=== PATIENT | female | born 1995 | race American Indian/Alaskan Native ===

== ENCOUNTER 2018-03-12 06:49 | Inpatient (IN) | payer MEDICAID, OTHER ==
--- NOTE | 2018-03-12 07:10 | ED PDOC ---
Arrival/HPI - General Time Seen by Provider: 03/12/18 07:01 Historian: Patient - History of Present Illness Narrative History of Present Illness (Text): 03/12/18 07:07 Patient is a 22 yo female present to the Emergency Department complaining of 5 days of persistent bodyaches, nausea and diarrhea. States she was evaluated this past Sunday at [facility] but has had persistent symptoms despite being prescribed antinausea medication. She reports upper abominal pain , generalized bodyaches and fevers. Reports persistently loose stools, but denies bloody stools. Denies recent travel. No cough or shortness of breath. No pleuritic pain. Time/Duration: < week Symptom Onset: Gradual Family/Social History Family/Social History: Unknown Family HX Allergies/Home Meds Allergies/Adverse Reactions: Allergies No Known Allergies Allergy (Verified 03/12/18 11:50) Home Medications: Home Meds Medication Instructions Recorded Confirmed No Known Home Med 03/12/18 03/12/18 Review of Systems - Review of Systems Constitutional: Fatigue, Fevers. absent: Night Sweats Eyes: absent: Vision Changes ENT: absent: Hearing Changes, Sore Throat, Rhinorrhea Respiratory: absent: SOB, Cough Cardiovascular: Chest Pain. absent: Palpitations, Edema, Calf Pain, Orthopnea, Syncope Gastrointestinal: Abdominal Pain, Diarrhea, Nausea, Vomiting, Appetite Changes. absent: Stool Changes Genitourinary Female: absent: Dysuria, Frequency, Hematuria, Urine Output Changes Musculoskeletal: Myalgias. absent: Back Pain Skin: absent: Rash Neurological: absent: Headache, Dizziness Endocrine: absent: Polyuria Physical Exam Vital Signs Reviewed: Yes Vital Signs Temp Pulse Resp BP Pulse Ox 03/12/18 10:05 99.0 F 89 16 99 03/12/18 07:18 100.4 F H 89 16 136/89 98 03/12/18 06:59 98.8 F 93 H 18 164/65 H 99 Temperature: Afebrile Appearance: Positive for: Uncomfortable Pain Distress: Moderate Mental Status: Positive for: Alert and Oriented X 3 - Systems Exam Head: Present: Atraumatic Pupils: Present: PERRL Mouth: Present: Dry Pharnyx: No: ERYTHEMA Nose (Internal): Present: Normal Inspection Neck: Present: Normal Range of Motion. No: Meningeal Signs Respiratory/Chest: Present: Clear to Auscultation Cardiovascular: Present: Regular Rate and Rhythm Abdomen: Present: Tenderness, Normal Bowel Sounds, Other (focal tenderness to right upper and lower quadrants, no rebound or guarding). No: Peritoneal Signs Back: No: CVA Tenderness, Midline Tenderness Upper Extremity: No: Cyanosis, Edema Lower Extremity: No: Edema, CALF TENDERNESS Neurological: Present: Motor Func Grossly Intact, Normal Sensory Function Skin: Present: Warm Psychiatric: Present: Alert, Normal Insight, Normal Concentration Medical Decision Making ED Course and Treatment: 03/12/18 07:10 Patient complains of several day history of bodayaches and subjective fevers. On exam, she has diffuse abdomnial pain, no peritoneal signs. No respiratory distress noted. Plan to obtain labs, ct abdomen/pelvis, cxr, check labs and electrolytes, EKG for initial screening. She denies any known past medical history or allergies. 03/12/18 08:26 Reviewed chest xray, patient noted to have right lower lobe infiltrate consistent with pneumonia. Patient is not hypoxic currently denies cough and any respiratory distress at this time. IV antibiotics has been initiated. Will proceed with CT abdomen as she has persistent right abdominal pain. CT abdomen reading reviewed. As patient with persistent symptoms of nausea, diarrhea, bodyaches, fever, with failure of outpatient treatment, will admit for serial exams, iv antibiotics. Currently denies any hiv risk factor or prior history of pneumonia. No recent travel. Patient currently with no complaints of shortness of breath. No wheezing noted with serial exams. Xray findings reviewed with patient. She is a smoker, she has been advised and counseled on risks of this. - Lab Interpretations Lab Results: 03/12/18 07:35 03/12/18 07:35 Lab Results 03/12/18 09:00: Procalcitonin < 0.05 L 03/12/18 07:59: Influenza Typ A,B (EIA) Negative for flu a/b 03/12/18 07:51: Urine Color Yellow, Urine Appearance Clear, Urine pH 6.5, Ur Specific [place] 1.020, Urine Protein 30 H, Urine Glucose (UA) Negative, Urine Ketones >=80, Urine Blood Negative, Urine Nitrate Negative, Urine Bilirubin Negative, Urine Urobilinogen 4.0 H, Ur Leukocyte Esterase Negative, Urine RBC Negative, Urine WBC 0 - 2, Ur Epithelial Cells 6 - 8, Urine HCG, Qual Negative 05/22/18 07:35: Sodium 133, Chloride 97 L, Potassium 3.2 L, Carbon Dioxide 23, Anion Gap 16, BUN 2 L, Creatinine 0.5 L, Est GFR ( Amer) > 60, Est GFR ( Non-Af Amer) > 60, Random Glucose 99, Calcium 8.5, Total Bilirubin 0.3, AST 19, ALT 26, Alkaline Phosphatase 66, Lactate Dehydrogenase 351, Total Creatine Kinase 61, Troponin I < 0.01, Total Protein 6.8, Albumin 3.7, Globulin 3.1, Albumin/Globulin Ratio 1.2, Amylase 45, Lipase 25 03/12/18 07:35: PT 16.2 H, INR 1.40 H, APTT 30.3 03/12/18 07:35: WBC 11.6 H, RBC 4.14, Hgb 11.1 L, Hct 32.9 L, MCV 79.5 L, MCH 26.8, MCHC 33.7, RDW 13.2, Plt Count 183, MPV 10.8, Gran % 80.1 H, Lymph % (Auto ) 12.3 L, [place] % (Auto) 6.7 H, Eos % (Auto) 0.8 L, Baso % (Auto) 0.1, Gran # 9.26 H, Lymph # (Auto) 1.4, [place] # (Auto) 0.8 H, Eos # (Auto) 0.1, Baso # (Auto ) 0.01 03/12/18 07:35: pO2 146 H, VBG pH 7.43, VBG pCO2 38.0 L, VBG HCO3 25.2, VBG Total CO2 26.4, VBG O2 Sat (Calc) 100.3 H, VBG Base Excess 1.0, VBG Potassium 2.9 L, Sodium 130.0 L, Chloride 99.0, Glucose 99, Lactate 0.8, FiO2 21.0, Venous Blood Potassium 2.9 L - RAD Interpretation Radiology Orders: 03/12/18 07:26 CHEST PORTABLE [RAD] Stat 03/12/18 07:53 ABD & PELVIS IV CONTRAST ONLY [CT] Stat - EKG Interpretation EKG Interpretation (Text): EKG at 0750 normal sinus rhythm rate of 84 with nonspecific t wave abnormality, prolonged qt Interpreted by ED Physician: Yes Type: 12 lead EKG - Medication Orders Current Medication Orders: Acetaminophen (Tylenol 325mg Tab) 650 mg PO Q6 PRN PRN Reason: Pain, moderate (4-7) Benzonatate (Tessalon Perles) 100 mg PO TID [facility] Last Admin: 03/12/18 17:58 Dose: 100 mg Doxycycline Hyclate 100 mg/ (Sodium Chloride) 100 mls @ 100 mls/hr IVPB Q12 EMELINA PRN Reason: Protocol Last Admin: 03/12/18 12:25 Dose: 100 mls/hr eMAR Start Stop Document 03/12/18 12:25 LMN (Rec: 03/12/18 12:25 LMN [id number]) Intravenous Solution Start Date 03/12/18 Start Time 12:25 Ceftriaxone Sodium (Rocephin 1 Gram Ivpb) 1 gm in 100 mls @ 100 mls/hr IVPB DAILY EMELINA PRN Reason: Protocol Discontinued Medications Acetaminophen (Tylenol 325mg Tab) 650 mg PO ONCE STA Stop: 03/12/18 08:53 Sodium Chloride (Sodium Chloride 0.9%) 1,000 mls @ 1,000 mls/hr IV .Q1H STA Stop: 03/12/18 08:26 Last Admin: 03/12/18 07:56 Dose: 1,000 mls/hr eMAR Start Stop Document 03/12/18 07:56 HP (Rec: 03/12/18 07:[address] [facility] [id number] Intravenous Solution Start Date 03/12/18 Start Time 07:57 End Date 03/12/18 End time 08:27 Total Infusion Time 30 Ceftriaxone Sodium (Rocephin 1 Gram Ivpb) 1 gm in 100 mls @ 200 mls/hr IVPB ONCE STA PRN Reason: Protocol Stop: 03/12/18 08:42 Last Admin: 03/12/18 08:46 Dose: 200 mls/hr eMAR Start Stop Document 03/12/18 08:46 HP (Rec: 03/12/18 08:[address] [facility] [id number]) Intravenous Solution Start Date 03/12/18 Start Time 08:46 End Date 03/12/18 End time 09:16 Total Infusion Time 30 Azithromycin (Zithromax 500mg In Ns) 500 mg in 250 mls @ 166.667 mls/hr IVPB STAT STA PRN Reason: Protocol Stop: 03/12/18 09:42 Last Admin: 03/12/18 08:47 Dose: 166.667 mls/hr eMAR Start Stop Document 03/12/18 08:47 HP (Rec: 03/12/18 08:[address] [facility] [id number]) Intravenous Solution Start Date 03/12/18 Start Time 08:47 End Date 03/12/18 End time 10:17 Total Infusion Time 90 Ketorolac Tromethamine (Toradol) 30 mg IVP ONCE ONE Stop: 03/12/18 07:35 Last Admin: 03/12/18 07:57 Dose: 30 mg MAR Pain Assessment Document 03/12/18 07:57 HP (Rec: 03/12/18 07:[address] [facility] [id number]) Pain Reassessment Is this a pain reassessment? No IVP Administration Document 03/12/18 07:57 HP (Rec: 03/12/18 07:[address] [facility] [id number]) Charges for Administration # of IVP Administrations 1 Ondansetron HCl (Zofran Inj) 4 mg IVP ONCE ONE Stop: 03/12/18 07:28 Last Admin: 03/12/18 07:57 Dose: 4 mg IVP Administration Document 03/12/18 07:57 HP (Rec: 03/12/18 07:[address] [facility] [id number]) Charges for Administration # of IVP Administrations 1 Pneumococcal Polyvalent Vaccine (Pneumovax 23 Vaccine) 0.5 ml IM .ONCE ONE Stop: 03/12/18 14:14 Potassium Chloride (K-Dur 20 Meq Er Tab) 40 meq PO STAT STA Stop: 03/12/18 07:59 Last Admin: 03/12/18 08:35 Dose: 40 meq Disposition/Present on Arrival - Present on Arrival Any Indicators Present on Arrival: No - Disposition Have Diagnosis and Disposition been Completed?: Yes Diagnosis: Pneumonia, Abdominal pain Disposition: HOSPITALIZED Disposition Time: 09:30 Patient Plan: Admission Condition: FAIR
[2018-03-12 07:21] VITALS: BMI 18.8
[2018-03-12] MEDS ORDERED: Sodium Chloride 0.9% 1,000 ML IV STA (07:27)
[2018-03-12 07:48] LABS: VENOUS BLOOD GAS PO2 146 mm/Hg (30-55); VENOUS BLOOD PH 7.43 (7.32-7.43)
[2018-03-12 07:57] LABS: BASO # 0.01 K/mm3 (0.0-2.0); BASO % 0.1 % (0.0-3.0); EOS # 0.1 (0.0-0.7); EOS % 0.8 % (1.5-5.0); GRAN # 9.26 (1.4-6.5); GRAN % 80.1 % (50.0-68.0); HEMOGLOBIN 11.1 g/dL (12.0-16.0); LYMPH # 1.4 (1.2-3.4); LYMPH % 12.3 % (22.0-35.0); MEAN CELL VOLUME 79.5 fl (80.0-105.0); MEAN CORPUSCULAR HEMOGLOBIN 26.8 pg (25.0-35.0); MEAN CORPUSCULAR HGB CONC 33.7 g/dl (31.0-37.0); MEAN PLATELET VOLUME 10.8 fl (7.0-11.0); MONO # 0.8 (0.1-0.6); MONO % 6.7 % (1.0-6.0); RBC 4.14 10^6/uL (3.5-6.1); RED CELL DISTRIBUTION WIDTH 13.2 % (11.5-14.5); WHITE BLOOD COUNT 11.6 10^3/ul (4.5-11.0)
[2018-03-12 07:58] LABS: ALB/GLOB RATIO 1.2 (1.1-1.8); ALBUMIN 3.7 g/dL (3.0-4.8); ALT/SGPT 26 U/L (7-56); AMYLASE 45 U/L (35-125); AST/SGOT 19 U/L (14-36); BLOOD UREA NITROGEN 2 mg/dL (7-21); CALCIUM 8.5 mg/dL (8.4-10.5); GFR AFRICAN-AMERICAN > 60; GFR NON-AFRICAN AMERICAN > 60; LIPASE 25 U/L (23-300)
[2018-03-12] MEDS ORDERED: Potassium Chloride 20 mEq ER Tab PO STA (07:58)
[2018-03-12 08:04] LABS: INR 1.4 (0.93-1.08); PARTIAL THROMBOPLASTIN TIME 30.3 Seconds (25.1-36.5); PROTHROMBIN TIME 16.2 SECONDS (9.4-12.5)
[2018-03-12 08:09] LABS: TROPONIN I < 0.01 ng/mL
[2018-03-12] MEDS ORDERED: Azithromycin 500MG/NS 250ml 500 MG/250 ML BAG IVPB STA (08:13)
[2018-03-12] MEDS ORDERED: cefTRIAXone 1 gm 1 GM/100 ML BAG IVPB STA (08:13)
[2018-03-12] MEDS ORDERED: Iohexol 350 MG/100 ML VIAL ONE (08:13)
[2018-03-12 08:21] LABS: PH,URINE 6.5 (4.7-8.0); URINE APPEARANCE CLEAR (CLEAR); URINE BILIRUBIN NEGATIVE (NEGATIVE); URINE BLOOD NEGATIVE (NEGATIVE); URINE COLOR YELLOW (YELLOW); URINE GLUCOSE (UA) NEGATIVE (NEGATIVE); URINE LEUKOCYTE ESTERASE NEGATIVE Leu/uL (NEGATIVE); URINE PROTEIN 30 mg/dL (<30 mg/dL)
[2018-03-12 08:28] LABS: HCG,QUALITATIVE URINE NEGATIVE (NEGATIVE)
[2018-03-12 08:43] LABS: URINE RBC NEGATIVE /hpf (0-2); URINE WBC 0 - 2 /hpf (0-6)
--- NOTE | 2018-03-12 09:24 | CT ---
PROCEDURE: CT Abdomen and Pelvis with contrast HISTORY: fever, abdominal pain, right sided pain COMPARISON: None. TECHNIQUE: Contrast dose: 100 cc of Omni 350 Radiation dose: Total exam DLP = 373 mGy-cm. This CT exam was performed using one or more of the following dose reduction techniques: Automated exposure control, adjustment of the mA and/or kV according to patient size, and/or use of iterative reconstruction technique. FINDINGS: LOWER THORAX: There is a dense alveolar infiltrate in the right lower lobe consistent with pneumonia. LIVER: Unremarkable. No gross lesion or ductal dilatation. GALLBLADDER AND BILE DUCTS: Unremarkable. PANCREAS: Unremarkable. No gross lesion or ductal dilatation. SPLEEN: Unremarkable. ADRENALS: Unremarkable. No mass. KIDNEYS AND URETERS: Unremarkable. No hydronephrosis. No solid mass. VASCULATURE: Unremarkable. No aortic aneurysm. BOWEL: Unremarkable. No obstruction. No gross mural thickening. APPENDIX: Normal appendix. PERITONEUM: Unremarkable. No free fluid. No free air. LYMPH NODES: Unremarkable. No enlarged lymph nodes. BLADDER: Unremarkable. REPRODUCTIVE: There is a 1.7 x 2.2 cm right ovarian cyst with a mildly thickened enhancing wall. This may have recently ruptured. There is no fluid in the cul-de-sac. BONES: No acute fracture. OTHER FINDINGS: None. IMPRESSION: Dense alveolar infiltrate in the right lower lobe
--- NOTE | 2018-03-12 10:27 | CARD ---
APPROVED REPORT EKG Measurement Heart [id number] ME [id number] <Conclusion> Normal sinus rhythm Nonspecific T wave abnormality Prolonged QT Abnormal ECG
--- NOTE | 2018-03-12 10:50 | CP.PCM.HP ---
<Nati Gleason - Last Filed: 03/12/18 13:25> History of Present Illness - History of Present Illness History of Present Illness: IM H & P for Dr. Louis Gleason, PGY-1 Pt S & E at bedside at 1015 w/attending 22F w/no sig PMH admitted for pneumonia, emesis, diarrhea. Pt reports epigastric pain- constant, severe, non radiating x 5 days. Seen in [facility] on Sat for same with CT ab performed and anti-emetic given. Admits to mid back pain, nausea, emesis (nbnb, food stuff), headache, fevers, chills/sweating, diarrhea ( liquid x 1), cough (non productive) x 2 days. Never had symptoms prior. Denies sick contacts, constipation, sore throat, dizziness, vision changes, palpitations, chest pain, SOB, weakness, numbness or tingling of extremities. IN ED- febrile 100.4, leukocytosis 11.6, U/A neg, flu neg. CXR w/RLL infiltrate. CT ab w/1.7 x 2.2 cm right ovarian cyst with a mildly thickened enhancing wall- may have recently ruptured. No fluid in the cul-de-sac. PMH: Denies PSH: Denies All: NKDA SH: Denies ETOH or tobacco use, admits to MJ use - last smoked 2 weeks ago, averages #4-5/month PMD: [place] FH: non contributory LMP: start of February, normal, no irregular bleeding or pain Present on Admission - Present on Admission Any Indicators Present on Admission: No History of DVT/PE: No History of Uncontrolled Diabetes: No Urinary Catheter: No Decubitus Ulcer Present: No Review of Systems - Review of Systems All systems: reviewed and no additional remarkable complaints except - Constitutional Constitutional: Chills, Excessive Sweating, Fever, Headache. absent: Increased Appetite, Weakness - EENT Eyes: absent: Change in Vision Ears: absent: Dizziness Nose/Mouth/Throat: absent: Sore Throat - Cardiovascular Cardiovascular: absent: Chest Pain, Palpitations - Respiratory Respiratory: Cough, Excessive Mucous Production - Gastrointestinal Gastrointestinal: Abdominal Pain, Change in Bowel Habits, Diarrhea, Nausea, Vomiting. absent: Constipation, Hematemesis, Melena - Genitourinary Genitourinary: absent: Change in Urinary Stream, Dysuria - Menstruation Menstruation: absent: Amenorrhea - Musculoskeletal Musculoskeletal: Back Pain. absent: Muscle Weakness, Numbness, Tingling - Integumentary Integumentary: absent: Rash - Psychiatric Psychiatric: Change in Appetite (decrease) Past Patient History - Past Social History Smoking Status: Light Smoker < 10 Cigarettes Daily - PSYCHIATRIC Hx Substance Use: No - SURGICAL HISTORY Hx Surgeries: No Meds Allergies/Adverse Reactions: Allergies Allergy/AdvReac Type Severity Reaction Status Date / Time No Known Allergies Allergy Verified 03/12/18 11:50 Physical Exam - Constitutional Appears: Non-toxic, No Acute Distress - Head Exam Head Exam: ATRAUMATIC, NORMAL INSPECTION, NORMOCEPHALIC - Eye Exam Eye Exam: EOMI, Normal appearance - ENT Exam ENT Exam: Mucous Membranes Moist, Normal Exam - Neck Exam Neck exam: Positive for: Full Rom, Normal Inspection - Respiratory Exam Respiratory Exam: Clear to Auscultation Bilateral, NORMAL BREATHING PATTERN. absent: Accessory Muscle Use, Chest Wall Tenderness, Rales, Rhonchi, Wheezes, Respiratory Distress - Cardiovascular Exam Cardiovascular Exam: REGULAR RHYTHM, +S1, +S2 - GI/Abdominal Exam GI & Abdominal Exam: Normal Bowel Sounds, Soft, Tenderness (epigastric, RLQ- mild). absent: Distended, Firm, Guarding, Hernia - Extremities Exam Extremities exam: Positive for: full ROM, normal inspection. Negative for: pedal edema - Back Exam Back exam: NORMAL INSPECTION. absent: CVA tenderness (L), CVA tenderness (R) - Neurological Exam Neurological exam: Alert, CN II-XII Intact, Normal Gait, Oriented x3 - Psychiatric Exam Psychiatric exam: Normal Affect, Normal Mood - Skin Skin Exam: Dry, Intact, Normal Color, Warm Results - Vital Signs Recent Vital Signs: Last Vital Signs Temp 99.0 F 03/12/18 10:28 Pulse 86 03/12/18 10:28 Resp 16 03/12/18 10:28 BP 136/86 03/12/18 10:28 Pulse Ox 98 03/12/18 10:28 - Labs Result Diagrams: 03/12/18 07:35 03/12/18 07:35 Assessment & Plan - Assessment and Plan (Free Text) Assessment: 22F w/no sig PMH admitted for pneumonia, nausea/emesis & diarrhea Plan: CAP Doxy Rocephin Tylenol PRN FU strep pneumo FU legionella FU blood cx FU urine cx FU procalc FU HIV FU UDS FU Chest CT Target SaO2>94% Monitor Hypokalemia K 3.2 Replaced Monitor N/V/D Transvaginal U/S Fulls Monitor Avoid QT prolonging agents GI/DVT ppx SCDs Ambulate On Fulls Dispo Admit to med surg VS Q6 Activity as tolerated- ambulates DW attending Rosibel, PGY-1 - Date & Time Date: 03/12/18 Time: 10:20 Decision To Admit - Pt Status Changed To: Hospital Disposition Of: Inpatient Admission - Admit Certification Admit to Inpatient:: After my assessment, the patient will require hospitalization for at least two midnights. This is because of the severity of symptoms shown, intensity of services needed, and/or the medical risk in this patient being treated as an outpatient. - . Bed Request Type: Med/Surg Admitting Physician: Bud Cortez <Bud Cortez - Last Filed: 03/14/18 13:24> Results - Vital Signs Recent Vital Signs: Last Vital Signs Temp 98.4 F 03/14/18 08:34 Pulse 67 03/14/18 08:34 Resp 20 03/14/18 08:34 BP 107/69 03/14/18 08:34 Pulse Ox 97 03/14/18 08:34 - Labs Result Diagrams: 03/14/18 07:00 03/14/18 07:00 Labs: Laboratory Results - last 24 hr 03/13/18 03/14/18 03/14/18 09:00 07:00 07:00 WBC 10.0 RBC 4.24 Hgb 11.3 L Hct 33.3 L MCV 78.5 L MCH 26.7 MCHC 33.9 RDW 13.2 Plt Count 213 MPV 10.6 Gran % 67.5 Lymph % (Auto) 18.9 L [place] % (Auto) 10.5 H Eos % (Auto) 2.9 Baso % (Auto) 0.2 Gran # 6.78 H Lymph # (Auto) 1.9 [place] # (Auto) 1.1 H Eos # (Auto) 0.3 Baso # (Auto) 0.02 Sodium 141 Potassium 3.6 Chloride 99 Carbon Dioxide 28 Anion Gap 17 BUN 3 L Creatinine 0.5 L Est GFR ( Amer) > 60 Est GFR (Non-Af Amer) > 60 Random Glucose 85 Calcium 8.9 Ur L.pneumophila Ag Negative Attending/Attestation - Attestation I have personally seen and examined this patient.: Yes I have fully participated in the care of the patient.: Yes I have reviewed all pertinent clinical information: Yes Notes (Text): I have seen and examined the patient at bedside. Agree with the above note with the following additions/ exceptions: Briefly this is 22 year old female with history of marijuana use who came for eval of abdominal pain, NO cough/hypoxia/ sob and found to have dense RLL pneumonia (on CXR & CTA) and possible ovarian cyst rupture. CT chest and TVUS pending. She is on rocephin and doxy. EKG showed prolong QT interval. Counselling provided regarding marijuana use.
--- NOTE | 2018-03-12 11:08 | RAD ---
HISTORY: chest pain COMPARISON: No prior. FINDINGS: LUNGS: Right basal infiltrate PLEURA: No significant pleural effusion identified, no pneumothorax apparent. CARDIOVASCULAR: Normal. OSSEOUS STRUCTURES: No significant abnormalities. VISUALIZED UPPER ABDOMEN: Normal. OTHER FINDINGS: None. IMPRESSION: Right basal infiltrate consistent with pneumonia. Follow-up to complete resolution recommended. Comments: Findings discussed directly with the ER physician Dr. Walker on 03/12/2018 at 9:50 a.m.
[2018-03-12] MEDS ORDERED: Pneumococcal 23-Valent Vaccine IM ONE (14:13)
[2018-03-12] MEDS ORDERED: DiphenhydrAMINE 12.5 mg/5 ml LIQ UD (5 ml) PO STA (21:31)
[2018-03-13] MEDS ORDERED: Piperacillin/Tazobact 3.375 gm 100 ML IVPB STA (07:03)
[2018-03-13] MEDS ORDERED: guaiFENesin 200 mg/10 ml Syrup UD PO PRN (07:04)
[2018-03-13] MEDS ORDERED: Albuterol-Ipratrop 3 mg / 0.5 (3 ml) UD IH STA (07:18)
[2018-03-13] MEDS ORDERED: Albuterol-Ipratrop 3 mg / 0.5 (3 ml) UD IH ONE (07:19)
[2018-03-13 07:23] LABS: BASO # 0.02 K/mm3 (0.0-2.0); BASO % 0.2 % (0.0-3.0); EOS # 0.2 (0.0-0.7); EOS % 1.4 % (1.5-5.0); GRAN # 8.07 (1.4-6.5); GRAN % 70.9 % (50.0-68.0); HEMOGLOBIN 11.4 g/dL (12.0-16.0); LYMPH # 2.3 (1.2-3.4); LYMPH % 19.8 % (22.0-35.0); MEAN CELL VOLUME 78.8 fl (80.0-105.0); MEAN PLATELET VOLUME 11.1 fl (7.0-11.0); MONO # 0.9 (0.1-0.6); MONO % 7.7 % (1.0-6.0); RBC 4.38 10^6/uL (3.5-6.1); RED CELL DISTRIBUTION WIDTH 13.3 % (11.5-14.5); WHITE BLOOD COUNT 11.4 10^3/ul (4.5-11.0)
[2018-03-13 07:36] LABS: BLOOD UREA NITROGEN 2 mg/dL (7-21); CALCIUM 8.8 mg/dL (8.4-10.5); GFR AFRICAN-AMERICAN > 60; GFR NON-AFRICAN AMERICAN > 60
[2018-03-13] MEDS: guaiFENesin-Codeine 100-10mg/5ml Syrup (5 ml) UD PO SCH ×3 (08:23→15:50)
[2018-03-13] MEDS: Vancomycin 1gm in NS 250ml 1 GM/250 ML BAG IVPB SCH (09:29)
[2018-03-13 09:41] LABS: BARBITURATES, UR NEGATIVE (NEGATIVE); BENZODIAZEPINES, UR NEGATIVE (NEGATIVE); OPIATES, UR NEGATIVE (NEGATIVE); PHENCYCLIDINE, UR NEGATIVE (NEGATIVE)
[2018-03-13] MEDS ORDERED: cefTRIAXone 1 gm 1 GM/100 ML BAG IVPB SCH (10:00)
[2018-03-13] MEDS ORDERED: Potassium Chloride 40 mEq/30 ml LIQ UD PO ONE (13:44)
--- NOTE | 2018-03-13 14:39 | CP.PCM.PN ---
<Fili Curry - Last Filed: 03/13/18 14:32> Subjective - Date & Time of Evaluation Date of Evaluation: 03/13/18 Time of Evaluation: 14:32 - Subjective Subjective: Seen and examined at bedside. Coughing. No chest pain or SOB. No fevers or chills. No nausea or vomiting for diarrhea. Objective - Vital Signs/Intake and Output Vital Signs (last 24 hours): Temp Pulse Resp BP Pulse Ox 98.3 F 83 20 104/58 L 99 03/13/18 07:55 03/13/18 07:55 03/13/18 07:55 03/13/18 07:55 03/13/18 07:55 Intake and Output: 03/13/18 03/13/18 06:59 18:59 Intake Total 360 240 Balance 360 240 - Medications Medications: Current Medications Acetaminophen (Tylenol 325mg Tab) 650 mg PO Q6 PRN PRN Reason: Pain, moderate (4-7) Guaifenesin/Codeine Phosphate (Robitussin W/Codeine) 5 ml PO Q4H EMELINA Stop: 03/13/18 15:31 Last Admin: 03/13/18 12:37 Dose: 5 ml Vancomycin HCl (Vancomycin 1gm) 1 gm in 250 mls @ 167 mls/hr IVPB DAILY EMELINA PRN Reason: Protocol Last Admin: 03/13/18 09:29 Dose: 167 mls/hr Ondansetron HCl (Zofran Inj) 4 mg IVP Q6H PRN PRN Reason: Nausea/Vomiting - Labs Labs: 03/13/18 07:00 03/13/18 07:00 PT 16.2 SECONDS (9.4-12.5) H 03/12/18 07:35 INR 1.40 (0.93-1.08) H 03/12/18 07:35 APTT 30.3 Seconds (25.1-36.5) 03/12/18 07:35 - Constitutional Appears: Well - Head Exam Head Exam: ATRAUMATIC, NORMAL INSPECTION, NORMOCEPHALIC - Eye Exam Eye Exam: EOMI, Normal appearance, PERRL Pupil Exam: NORMAL ACCOMODATION, PERRL - ENT Exam ENT Exam: Mucous Membranes Moist, Normal Exam - Neck Exam Neck Exam: Full ROM, Normal Inspection. absent: Lymphadenopathy - Respiratory Exam Respiratory Exam: Clear to Ausculation Bilateral, NORMAL BREATHING PATTERN - Cardiovascular Exam Cardiovascular Exam: REGULAR RHYTHM, +S1, +S2. absent: Murmur - GI/Abdominal Exam GI & Abdominal Exam: Soft, Normal Bowel Sounds. absent: Tenderness - Extremities Exam Extremities Exam: Full ROM, Normal Capillary Refill, Normal Inspection. absent : Joint Swelling, Pedal Edema - Back Exam Back Exam: NORMAL INSPECTION - Neurological Exam Neurological Exam: Alert, Awake, CN II-XII Intact, Normal Gait, Oriented x3 - Psychiatric Exam Psychiatric exam: Normal Affect, Normal Mood - Skin Skin Exam: Dry, Intact, Normal Color, Warm Assessment and Plan (1) Aspiration pneumonia due to inhalation of vomitus Assessment & Plan: Follow up blood culture, urine culture and sputum culture R/O mycoplasma and legionella Jhoano and zosyn Reresin for the cough ID (Annette) Status: Acute <Fredrick Cage - Last Filed: 03/13/18 17:18> Objective - Vital Signs/Intake and Output Vital Signs (last 24 hours): Temp Pulse Resp BP Pulse Ox 98.9 F 65 18 98/59 L 98 03/13/18 14:55 03/13/18 14:55 03/13/18 14:55 03/13/18 14:55 03/13/18 14:55 Intake and Output: 03/13/18 03/13/18 06:59 18:59 Intake Total 360 240 Balance 360 240 - Medications Medications: Current Medications Acetaminophen (Tylenol 325mg Tab) 650 mg PO Q6 PRN PRN Reason: Pain, moderate (4-7) Vancomycin HCl (Vancomycin 1gm) 1 gm in 250 mls @ 167 mls/hr IVPB DAILY EMELINA PRN Reason: Protocol Last Admin: 03/13/18 09:29 Dose: 167 mls/hr Piperacillin Sod/Tazobactam Sod (Zosyn 3.375 In Ns 100ml) 100 mls @ 200 mls/hr IVPB Q6 EMELINA PRN Reason: Protocol Stop: 03/14/18 00:29 Ondansetron HCl (Zofran Inj) 4 mg IVP Q6H PRN PRN Reason: Nausea/Vomiting - Labs Labs: 03/13/18 07:00 03/13/18 07:00 PT 16.2 SECONDS (9.4-12.5) H 03/12/18 07:35 INR 1.40 (0.93-1.08) H 03/12/18 07:35 APTT 30.3 Seconds (25.1-36.5) 03/12/18 07:35 Attending/Attestation - Attestation I have personally seen and examined this patient.: Yes I have fully participated in the care of the patient.: Yes I have reviewed all pertinent clinical information, including history, physical exam and plan: Yes Notes (Text): (1) Aspiration pneumonia due to inhalation of vomitus
[2018-03-13] MEDS: Piperacillin/Tazobact 3.375 gm 100 ML IVPB SCH ×2 (19:13→23:01)
[2018-03-13] MEDS: guaiFENesin 100 mg/5 ml Syrup UD PO PRN (23:01)
[2018-03-14 07:37] LABS: BASO # 0.02 K/mm3 (0.0-2.0); BASO % 0.2 % (0.0-3.0); EOS # 0.3 (0.0-0.7); EOS % 2.9 % (1.5-5.0); GRAN # 6.78 (1.4-6.5); GRAN % 67.5 % (50.0-68.0); HEMOGLOBIN 11.3 g/dL (12.0-16.0); LYMPH # 1.9 (1.2-3.4); LYMPH % 18.9 % (22.0-35.0); MEAN CELL VOLUME 78.5 fl (80.0-105.0); MEAN CORPUSCULAR HEMOGLOBIN 26.7 pg (25.0-35.0); MEAN CORPUSCULAR HGB CONC 33.9 g/dl (31.0-37.0); MEAN PLATELET VOLUME 10.6 fl (7.0-11.0); MONO # 1.1 (0.1-0.6); MONO % 10.5 % (1.0-6.0); RBC 4.24 10^6/uL (3.5-6.1); RED CELL DISTRIBUTION WIDTH 13.2 % (11.5-14.5)
[2018-03-14 07:50] LABS: BLOOD UREA NITROGEN 3 mg/dL (7-21); CALCIUM 8.9 mg/dL (8.4-10.5); GFR AFRICAN-AMERICAN > 60; GFR NON-AFRICAN AMERICAN > 60
[2018-03-14] MEDS: Vancomycin 1gm in NS 250ml 1 GM/250 ML BAG IVPB SCH (10:23)
[2018-03-14] MEDS: Piperacillin/Tazobact 3.375 gm 100 ML IVPB SCH ×3 (12:05→23:12)
[2018-03-14] MEDS: guaiFENesin 100 mg/5 ml Syrup UD PO PRN ×2 (12:30→21:22)
--- NOTE | 2018-03-14 14:06 | CT ---
PROCEDURE: CT Chest without contrast HISTORY: dense infiltrate in RLL COMPARISON: CT of the abdomen 03/12/2018 TECHNIQUE: Contiguous axial images were obtained through the chest without intravenous contrast enhancement. Sagittal and coronal reconstructions were performed. Radiation dose (DLP): 146 mGy-cm. This CT exam was performed using one or more of the following dose reduction techniques: Automated exposure control, adjustment of the mA and/or kV according to patient size, and/or use of iterative reconstruction technique. FINDINGS: LUNGS: There is a dense alveolar infiltrate throughout the majority of the right lower lobe. The left lung is clear. The right upper lobe is clear. MEDIASTINUM: Unremarkable thoracic aorta. No aneurysm. Normal sized heart. Main pulmonary artery unremarkable. No vascular congestion. No lymphadenopathy. PLEURA: No pleural fluid. No pneumothorax. BONES: No fracture. No destructive lesion. UPPER ABDOMEN: Grossly unremarkable. OTHER FINDINGS: None. IMPRESSION: Extensive dense right lower lobe pneumonia
--- NOTE | 2018-03-14 15:16 | CP.PCM.PN ---
<Fili Curry - Last Filed: 03/14/18 15:13> Subjective - Date & Time of Evaluation Date of Evaluation: 03/14/18 Time of Evaluation: 15:13 - Subjective Subjective: Patient seen and examined at bedside. Doing well. Producing dark colored sputum. No blood. Feeling better overall. Still has back pain. No nausea or vomiting. Tolerating diet. Objective - Vital Signs/Intake and Output Vital Signs (last 24 hours): Temp Pulse Resp BP Pulse Ox 98.4 F 67 20 107/69 97 03/14/18 08:34 03/14/18 08:34 03/14/18 08:34 03/14/18 08:34 03/14/18 08:34 Intake and Output: 03/14/18 03/14/18 06:59 18:59 Intake Total 420 Output Total 2 Balance 418 - Medications Medications: Current Medications Acetaminophen (Tylenol 325mg Tab) 650 mg PO Q6 PRN PRN Reason: Pain, moderate (4-7) Guaifenesin (Robitussin) 100 mg PO Q4H PRN PRN Reason: Cough Last Admin: 03/14/18 12:30 Dose: 100 mg Heparin Sodium (Porcine) (Heparin) 5,000 units SC Q8 EMELINA PRN Reason: Protocol Last Admin: 03/14/18 14:17 Dose: 5,000 units Vancomycin HCl (Vancomycin 1gm) 1 gm in 250 mls @ 167 mls/hr IVPB DAILY EMELINA PRN Reason: Protocol Last Admin: 03/14/18 10:23 Dose: 167 mls/hr Piperacillin Sod/Tazobactam Sod (Zosyn 3.375 In Ns 100ml) 100 mls @ 200 mls/hr IVPB Q6 EMELINA PRN Reason: Protocol Stop: 03/14/18 18:29 Last Admin: 03/14/18 12:05 Dose: 200 mls/hr Ondansetron HCl (Zofran Inj) 4 mg IVP Q6H PRN PRN Reason: Nausea/Vomiting - Labs Labs: 03/14/18 07:00 03/14/18 07:00 PT 16.2 SECONDS (9.4-12.5) H 03/12/18 07:35 INR 1.40 (0.93-1.08) H 03/12/18 07:35 APTT 30.3 Seconds (25.1-36.5) 03/12/18 07:35 - Constitutional Appears: Well - Head Exam Head Exam: ATRAUMATIC, NORMAL INSPECTION, NORMOCEPHALIC - Eye Exam Eye Exam: EOMI, Normal appearance, PERRL Pupil Exam: NORMAL ACCOMODATION, PERRL - ENT Exam ENT Exam: Mucous Membranes Moist, Normal Exam - Neck Exam Neck Exam: Full ROM, Normal Inspection. absent: Lymphadenopathy - Respiratory Exam Respiratory Exam: Clear to Ausculation Bilateral, NORMAL BREATHING PATTERN - Cardiovascular Exam Cardiovascular Exam: REGULAR RHYTHM, +S1, +S2. absent: Murmur - GI/Abdominal Exam GI & Abdominal Exam: Soft, Normal Bowel Sounds. absent: Tenderness - Extremities Exam Extremities Exam: Full ROM, Normal Capillary Refill, Normal Inspection. absent : Joint Swelling, Pedal Edema - Back Exam Back Exam: NORMAL INSPECTION - Neurological Exam Neurological Exam: Alert, Awake, CN II-XII Intact, Normal Gait, Oriented x3 - Psychiatric Exam Psychiatric exam: Normal Affect, Normal Mood - Skin Skin Exam: Dry, Intact, Normal Color, Warm Assessment and Plan - Assessment and Plan (Free Text) Assessment: High res chest CT to follow up abdominal CT finding shows Extensive dense RLL infiltrate. Blood culture negative x48h Urine culture contaminated, no urinary symptoms patient already being treated with broad spectrum abx so repeat UC will likely be negative. No need to repeat at this time Sputum culture pending. Gram stain shows many PMNs and gram Positive cocci in pairs. Legionella negative flu negative F/U mycoplasma Procal <0.05 Vanco and zosyn Robitussin for the cough ID (Annette) <Bud Cortez B - Last Filed: 03/14/18 15:48> Objective - Vital Signs/Intake and Output Vital Signs (last 24 hours): Temp Pulse Resp BP Pulse Ox 98 F 74 20 119/75 96 03/14/18 15:14 03/14/18 15:14 03/14/18 15:14 03/14/18 15:14 03/14/18 15:14 Intake and Output: 03/14/18 03/14/18 06:59 18:59 Intake Total 420 Output Total 2 Balance 418 - Medications Medications: Current Medications Acetaminophen (Tylenol 325mg Tab) 650 mg PO Q6 PRN PRN Reason: Pain, moderate (4-7) Guaifenesin (Robitussin) 100 mg PO Q4H PRN PRN Reason: Cough Last Admin: 03/14/18 12:30 Dose: 100 mg Heparin Sodium (Porcine) (Heparin) 5,000 units SC Q8 EMELINA PRN Reason: Protocol Last Admin: 03/14/18 14:17 Dose: 5,000 units Vancomycin HCl (Vancomycin 1gm) 1 gm in 250 mls @ 167 mls/hr IVPB DAILY EMELINA PRN Reason: Protocol Last Admin: 03/14/18 10:23 Dose: 167 mls/hr Piperacillin Sod/Tazobactam Sod (Zosyn 3.375 In Ns 100ml) 100 mls @ 200 mls/hr IVPB Q6 EMELINA PRN Reason: Protocol Stop: 03/14/18 18:29 Last Admin: 03/14/18 12:05 Dose: 200 mls/hr Ondansetron HCl (Zofran Inj) 4 mg IVP Q6H PRN PRN Reason: Nausea/Vomiting - Labs Labs: 03/14/18 07:00 03/14/18 07:00 PT 16.2 SECONDS (9.4-12.5) H 03/12/18 07:35 INR 1.40 (0.93-1.08) H 03/12/18 07:35 APTT 30.3 Seconds (25.1-36.5) 03/12/18 07:35 Attending/Attestation - Attestation I have personally seen and examined this patient.: Yes I have fully participated in the care of the patient.: Yes I have reviewed all pertinent clinical information, including history, physical exam and plan: Yes Notes (Text): I have seen and examined the patient at bedside. Agree with the above note with the following additions/ exceptions: Briefly this is 22 year old female with history of marijuana use who came for eval of abdominal pain, Now she has cough , purulent sputum however there is no hypoxia. She was found to have dense RLL pneumonia (on CXR & CTA) and possible ovarian cyst rupture. CT chest is pending. She is on IV antibiotics. ID consult pending. Counselling provided regarding marijuana use.
[2018-03-14] MEDS: levoFLOXacin 500 MG TAB PO SCH (21:19)
--- NOTE | 2018-03-15 05:02 | CON ---
DATE: 03/14/2018 LOCATION: The patient seen earlier today in 573, bed 1. HISTORY OF PRESENT ILLNESS: The patient is a very poor historian. She was admitted with a fever in a 22-year-old female with no significant past medical history except for ovarian cyst, and who was seen in [facility], was given antibiotics and workup done, now admitted with nausea, vomiting and diarrhea, and found to have a pneumonia. Infectious Disease consultation requested. Patient did have fever around 03/12/2018 during admission of 100.4 and mild shortness of breath and cough. PAST MEDICAL HISTORY: Noncontributory. PAST SURGICAL HISTORY: Noncontributory. ALLERGIES: NO KNOWN ALLERGIES. MEDICATIONS: At home none . PHYSICAL EXAMINATION VITAL SIGNS: She is in bed with a temperature of 98, T-max is 100.4, respiratory rate of 20; heart rate of 93, is down to 83; blood pressure is 104/50. HEENT: Unremarkable. NECK: Supple. LUNGS: Decreased breath sounds. HEART: Normal S1 and S2. ABDOMEN: Soft, nontender. No rebound or guarding. LABORATORY DATA: Reveals a white a count of 11,600, hemoglobin of 11, platelets of 183. Coagulation is noted. Chemistries reveals a BUN of 3, creatinine of 0.5, procalcitonin is less than 0.5 and blood sugar is normal. LFTs are normal. Urinalysis, she had 30 proteins. Toxicology is positive for cannabinoids. Patient's HIV is negative. Influenza is negative. Urine for Legionella antigen is negative. Microbiology negative. Blood cultures multiple specimens, and urine cultures, sputum cultures pending. Patient had a CAT scan in the abdomen and pelvis which reveals dense alveolar infiltrate in the right lower lobe, chest x-ray shows the same. Patient also had a CAT scan of the chest which reveals extensive pneumonia. ASSESSMENT AND PLAN: This is a 22-year-old female with sepsis, community-acquired pneumonia, looks unusual for a 22-year-old, had extensive pneumonia, with negative procalcitonin. We will check Levaquin for atypical, on vancomycin and Zosyn, and mycoplasma workup is in progress, and we will make further recommendations. We will also order a vasculitis workup, sedimentation rate, C-reactive protein, KIMMIE and we will make further recommendations upon availability of initial results. Gregorio Kirkland MD [facility] # [id number]
[2018-03-15] MEDS: Piperacillin/Tazobact 3.375 gm 100 ML IVPB SCH ×2 (06:32→12:07)
[2018-03-15 07:48] LABS: BASO # 0.02 K/mm3 (0.0-2.0); BASO % 0.2 % (0.0-3.0); EOS # 0.3 (0.0-0.7); EOS % 3.9 % (1.5-5.0); GRAN # 5.13 (1.4-6.5); HEMOGLOBIN 10.7 g/dL (12.0-16.0); LYMPH # 1.8 (1.2-3.4); LYMPH % 22.3 % (22.0-35.0); MEAN CELL VOLUME 78.6 fl (80.0-105.0); MEAN CORPUSCULAR HEMOGLOBIN 26.6 pg (25.0-35.0); MEAN CORPUSCULAR HGB CONC 33.9 g/dl (31.0-37.0); MEAN PLATELET VOLUME 10.4 fl (7.0-11.0); MONO # 0.8 (0.1-0.6); MONO % 9.6 % (1.0-6.0); RBC 4.02 10^6/uL (3.5-6.1); RED CELL DISTRIBUTION WIDTH 13.3 % (11.5-14.5)
[2018-03-15 07:59] LABS: BLOOD UREA NITROGEN 3 mg/dL (7-21); CALCIUM 8.5 mg/dL (8.4-10.5); GFR AFRICAN-AMERICAN > 60; GFR NON-AFRICAN AMERICAN > 60
[2018-03-15 08:08] VITALS: O2SAT 100
[2018-03-15] MEDS ORDERED: Potassium Chloride 20 mEq ER Tab PO ONE (08:50)
[2018-03-15] MEDS: Lactobacillus Acidophilus 500 MU Cap PO SCH ×2 (09:42→17:42)
[2018-03-15] MEDS: levoFLOXacin 500 MG TAB PO SCH (09:42)
[2018-03-15] MEDS: Vancomycin 1gm in NS 250ml 1 GM/250 ML BAG IVPB SCH (09:43)
[2018-03-15 14:18] VITALS: BP 109/63; PULSE 71; RESP 18; TEMP 98.2
--- NOTE | 2018-03-15 14:21 | CP.PCM.PN ---
Subjective - Date & Time of Evaluation Date of Evaluation: 03/15/18 Time of Evaluation: 14:19 - Subjective Subjective: IM progress note for Dr. Salazar Gleason, PGY-1 Pt S & E at bedside at 0745 Pt reports multiple small episodes of diarrhea yesterday, nothing today. Admits to RLQ ab pain that had gotten better yesterday, but recurred today. Now also reports epigastric ab pain. Pain improved after eating, continues with productive cough, streaks of blood in expectorant. Denies N & V, F & C, other complaints. Ambulating. Tolerating diet. Voiding without problems. Objective - Vital Signs/Intake and Output Vital Signs (last 24 hours): Temp Pulse Resp BP Pulse Ox 98.2 F 71 18 109/63 100 03/15/18 14:00 03/15/18 14:00 03/15/18 14:00 03/15/18 14:00 03/15/18 14:00 Intake and Output: 03/15/18 03/15/18 06:59 18:59 Intake Total 900 Balance 900 - Medications Medications: Current Medications Acetaminophen (Tylenol 325mg Tab) 650 mg PO Q6 PRN PRN Reason: Pain, moderate (4-7) Famotidine (Pepcid) 20 mg PO 1000,2200 EMELINA Guaifenesin (Robitussin) 100 mg PO Q4H PRN PRN Reason: Cough Last Admin: 03/14/18 21:22 Dose: 100 mg Heparin Sodium (Porcine) (Heparin) 5,000 units SC Q8 EMELINA PRN Reason: Protocol Last Admin: 03/15/18 06:32 Dose: 5,000 units Piperacillin Sod/Tazobactam Sod (Zosyn 3.375 In Ns 100ml) 100 mls @ 200 mls/hr IVPB Q6 EMELINA PRN Reason: Protocol Stop: 03/24/18 00:01 Last Admin: 03/15/18 12:07 Dose: 200 mls/hr Lactobacillus Acidophilus (Bacid Acidophilus) 1 cap PO BID [facility] Last Admin: 03/15/18 09:42 Dose: 1 cap Levofloxacin (Levaquin) 500 mg PO DAILY [facility] PRN Reason: Protocol Stop: 03/21/18 18:16 Last Admin: 03/15/18 09:42 Dose: 500 mg Ondansetron HCl (Zofran Inj) 4 mg IVP Q6H PRN PRN Reason: Nausea/Vomiting Last Admin: 03/15/18 01:50 Dose: 4 mg - Labs Labs: 03/15/18 07:15 03/15/18 07:15 PT 16.2 SECONDS (9.4-12.5) H 03/12/18 07:35 INR 1.40 (0.93-1.08) H 03/12/18 07:35 APTT 30.3 Seconds (25.1-36.5) 03/12/18 07:35 - Constitutional Appears: Non-toxic, No Acute Distress - Head Exam Head Exam: ATRAUMATIC, NORMAL INSPECTION, NORMOCEPHALIC - Eye Exam Eye Exam: EOMI, Normal appearance - ENT Exam ENT Exam: Mucous Membranes Moist, Normal Exam - Neck Exam Neck Exam: Full ROM, Normal Inspection - Respiratory Exam Respiratory Exam: Clear to Ausculation Bilateral, NORMAL BREATHING PATTERN. absent: Chest Wall Tenderness, Rales, Rhonchi, Wheezes, Respiratory Distress - Cardiovascular Exam Cardiovascular Exam: REGULAR RHYTHM, +S1, +S2 - GI/Abdominal Exam GI & Abdominal Exam: Soft, Tenderness (epigastric, RLQ-mild), Normal Bowel Sounds. absent: Distended, Firm, Guarding, Rigid - Extremities Exam Extremities Exam: Normal Inspection. absent: Pedal Edema - Neurological Exam Neurological Exam: Alert, Awake, CN II-XII Intact, Oriented x3 - Psychiatric Exam Psychiatric exam: Normal Affect, Normal Mood - Skin Skin Exam: Dry, Intact, Normal Color, Warm Assessment and Plan - Assessment and Plan (Free Text) Assessment: 24F w/no sig PMH admitted for atypical CAP Plan: CAP Afebrile No leukocytosis Zosyn D/C'd vanc Levaquin Robitusson CRP 109- high Mycoplasma pos-2.95 Blood cx neg x 3 Days Sputum cx neg Urine cx neg Legionella neg Flu neg HIV neg Trop neg x 1 procalc <0.05 ID recs- vasculitis work up, ESR, CRP, KIMMIE Hypokalemia K 3.5 Replaced Monitor Diarrhea FU C-diff Started probiotic Monitor Ab pain/nausea-possibly due to R ovarian cyst Recommend outpatient FU w/enlisted advisor for evaluation Zofran Pepcid Monitor GI/DVT ppx Heparin Pepcid DW attending Rosibel, PGY-1
--- NOTE | 2018-03-15 15:05 | CP.PCM.PN ---
Subjective - Date & Time of Evaluation Date of Evaluation: 03/15/18 Time of Evaluation: 11:40 - Subjective Subjective: No fevers, breathing better, cough is improved, no diarrhea or nausea. Objective - Vital Signs/Intake and Output Vital Signs (last 24 hours): Temp Pulse Resp BP Pulse Ox 98.2 F 71 18 109/63 100 03/15/18 14:00 03/15/18 14:00 03/15/18 14:00 03/15/18 14:00 03/15/18 14:00 Intake and Output: 03/15/18 03/15/18 06:59 18:59 Intake Total 900 Balance 900 - Medications Medications: Current Medications Acetaminophen (Tylenol 325mg Tab) 650 mg PO Q6 PRN PRN Reason: Pain, moderate (4-7) Famotidine (Pepcid) 20 mg PO 1000,2200 EMELINA Guaifenesin (Robitussin) 100 mg PO Q4H PRN PRN Reason: Cough Last Admin: 03/14/18 21:22 Dose: 100 mg Heparin Sodium (Porcine) (Heparin) 5,000 units SC Q8 EMELINA PRN Reason: Protocol Last Admin: 03/15/18 14:36 Dose: 5,000 units Piperacillin Sod/Tazobactam Sod (Zosyn 3.375 In Ns 100ml) 100 mls @ 200 mls/hr IVPB Q6 EMELINA PRN Reason: Protocol Stop: 03/24/18 00:01 Last Admin: 03/15/18 12:07 Dose: 200 mls/hr Lactobacillus Acidophilus (Bacid Acidophilus) 1 cap PO BID EMELINA Last Admin: 03/15/18 09:42 Dose: 1 cap Levofloxacin (Levaquin) 500 mg PO DAILY EMELINA PRN Reason: Protocol Stop: 03/21/18 18:16 Last Admin: 03/15/18 09:42 Dose: 500 mg Ondansetron HCl (Zofran Inj) 4 mg IVP Q6H PRN PRN Reason: Nausea/Vomiting Last Admin: 03/15/18 01:50 Dose: 4 mg - Labs Labs: 03/15/18 07:15 03/15/18 07:15 PT 16.2 SECONDS (9.4-12.5) H 03/12/18 07:35 INR 1.40 (0.93-1.08) H 03/12/18 07:35 APTT 30.3 Seconds (25.1-36.5) 03/12/18 07:35 - Constitutional Appears: Chronically Ill - Head Exam Head Exam: NORMAL INSPECTION - ENT Exam ENT Exam: Mucous Membranes Moist - Neck Exam Neck Exam: absent: Lymphadenopathy, Meningismus - Respiratory Exam Respiratory Exam: Decreased Breath Sounds - Cardiovascular Exam Cardiovascular Exam: +S1, +S2 - GI/Abdominal Exam GI & Abdominal Exam: Soft. absent: Tenderness Assessment and Plan - Assessment and Plan (Free Text) Plan: Assessment right lower lobe community-acquired pneumonia, slowly improving Plan on Vancomycin, Zosyn and Levaquin - cultures have been negative - patient can be switched to PO Levaquin and PO Augmentin for another 5 days with outpatient follow up with a PMD, to follow up vasculitis work up HIV test is non-reactive urine Legionella Ag is negative
--- NOTE | 2018-03-15 15:15 | CP.PCM.DIS ---
Provider - Provider Date of Admission: 03/12/18 09:23 Attending physician: Bud Cortez MD Primary care physician: None Consults: RIYA Bryant Time Spent in preparation of Discharge (in minutes): 35 Hospital Course - Lab Results Lab Results: Micro Results 03/13/18 09:00 Sputum Gram Stain - Final 03/13/18 09:00 Sputum Sputum Culture - Final NORMAL SAPROPHYTIC LATASHA Most Recent Lab Values WBC 8.0 10^3/ul (4.5-11.0) 03/15/18 07:15 RBC 4.02 10^6/uL (3.5-6.1) 03/15/18 07:15 Hgb 10.7 g/dL (12.0-16.0) L 03/15/18 07:15 Hct 31.6 % (36.0-48.0) L 03/15/18 07:15 MCV 78.6 fl (80.0-105.0) L 03/15/18 07:15 MCH 26.6 pg (25.0-35.0) 03/15/18 07:15 MCHC 33.9 g/dl (31.0-37.0) 03/15/18 07:15 RDW 13.3 % (11.5-14.5) 03/15/18 07:15 Plt Count 255 10^3/uL (120.0-450.0) 03/15/18 07:15 MPV 10.4 fl (7.0-11.0) 03/15/18 07:15 Gran % 64.0 % (50.0-68.0) 03/15/18 07:15 Lymph % (Auto) 22.3 % (22.0-35.0) 03/15/18 07:15 Lane % (Auto) 9.6 % (1.0-6.0) H 03/15/18 07:15 Eos % (Auto) 3.9 % (1.5-5.0) 03/15/18 07:15 Baso % (Auto) 0.2 % (0.0-3.0) 03/15/18 07:15 Gran # 5.13 (1.4-6.5) 03/15/18 07:15 Lymph # (Auto) 1.8 (1.2-3.4) 03/15/18 07:15 Lane # (Auto) 0.8 (0.1-0.6) H 03/15/18 07:15 Eos # (Auto) 0.3 (0.0-0.7) 03/15/18 07:15 Baso # (Auto) 0.02 K/mm3 (0.0-2.0) 03/15/18 07:15 ESR 80 mm/hr (0.0-20.0) H 03/15/18 07:15 PT 16.2 SECONDS (9.4-12.5) H 03/12/18 07:35 INR 1.40 (0.93-1.08) H 03/12/18 07:35 APTT 30.3 Seconds (25.1-36.5) 03/12/18 07:35 pO2 146 mm/Hg (30-55) H 03/12/18 07:35 VBG pH 7.43 (7.32-7.43) 03/12/18 07:35 VBG pCO2 38.0 (40-60) L 03/12/18 07:35 VBG HCO3 25.2 mmol/l (21-28) 03/12/18 07:35 VBG Total CO2 26.4 mmol.L (22-28) 03/12/18 07:35 VBG O2 Sat (Calc) 100.3 % (40-65) H 03/12/18 07:35 VBG Base Excess 1.0 mmol/L (0.0-2.0) 03/12/18 07:35 VBG Potassium 2.9 mmol/L (3.6-5.2) L 03/12/18 07:35 Sodium 130.0 mmol/L (132-148) L 03/12/18 07:35 Chloride 99.0 mmol/L (98-107) 03/12/18 07:35 Glucose 99 mg/dl (65-105) 03/12/18 07:35 Lactate 0.8 mmol/L (0.7-2.1) 03/12/18 07:35 FiO2 21.0 % 03/12/18 07:35 Sodium 139 mmol/L (132-148) 03/15/18 07:15 Potassium 3.5 mmol/L (3.6-5.0) L 03/15/18 07:15 Chloride 101 mmol/L (98-107) 03/15/18 07:15 Carbon Dioxide 29 mmol/L (21-33) 03/15/18 07:15 Anion Gap 12 (10-20) 03/15/18 07:15 BUN 3 mg/dL (7-21) L 03/15/18 07:15 Creatinine 0.5 mg/dl (0.7-1.2) L 03/15/18 07:15 Est GFR ( Amer) > 60 03/15/18 07:15 Est GFR (Non-Af Amer) > 60 03/15/18 07:15 Random Glucose 93 mg/dL (70-110) 03/15/18 07:15 Calcium 8.5 mg/dL (8.4-10.5) 03/15/18 07:15 Total Bilirubin 0.3 mg/dL (0.2-1.3) 03/12/18 07:35 AST 19 U/L (14-36) 03/12/18 07:35 ALT 26 U/L (7-56) 03/12/18 07:35 Alkaline Phosphatase 66 U/L (38-126) 03/12/18 07:35 Lactate Dehydrogenase 351 U/L (333-699) 03/12/18 07:35 Total Creatine Kinase 61 U/L (35-230) 03/12/18 07:35 Troponin I < 0.01 ng/mL 03/12/18 07:35 C-Reactive Protein 109.10 mg/L (0.0-9.9) H 03/15/18 07:15 Total Protein 6.8 g/dL (5.8-8.3) 03/12/18 07:35 Albumin 3.7 g/dL (3.0-4.8) 03/12/18 07:35 Globulin 3.1 gm/dL 03/12/18 07:35 Albumin/Globulin Ratio 1.2 (1.1-1.8) 03/12/18 07:35 Amylase 45 U/L (35-125) 03/12/18 07:35 Lipase 25 U/L (23-300) 03/12/18 07:35 Procalcitonin < 0.05 NG/ML (0.19-0.49) L 03/12/18 09:00 Venous Blood Potassium 2.9 mmol/L (3.6-5.2) L 03/12/18 07:35 Urine Color Yellow (YELLOW) 03/12/18 07:51 Urine Appearance Clear (CLEAR) 03/12/18 07:51 Urine pH 6.5 (4.7-8.0) 03/12/18 07:51 Ur Specific [place] 1.020 (1.005-1.035) 03/12/18 07:51 Urine Protein 30 mg/dL (<30 mg/dL) H 03/12/18 07:51 Urine Glucose (UA) Negative mg/dL (NEGATIVE) 03/12/18 07:51 Urine Ketones >=80 mg/dL (NEGATIVE) 03/12/18 07:51 Urine Blood Negative (NEGATIVE) 03/12/18 07:51 Urine Nitrate Negative (NEGATIVE) 03/12/18 07:51 Urine Bilirubin Negative (NEGATIVE) 03/12/18 07:51 Urine Urobilinogen 4.0 E.U./dL (<1 E.U./dL) H 03/12/18 07:51 Ur Leukocyte Esterase Negative Jimmie/uL (NEGATIVE) 03/12/18 07:51 Urine RBC Negative /hpf (0-2) 03/12/18 07:51 Urine WBC 0 - 2 /hpf (0-6) 03/12/18 07:51 Ur Epithelial Cells 6 - 8 /hpf (0-5) 03/12/18 07:51 Urine HCG, Qual Negative (NEGATIVE) 03/12/18 07:51 Urine Opiates Screen Negative (NEGATIVE) 03/13/18 09:00 Urine Methadone Screen Negative (NEGATIVE) 03/13/18 09:00 Ur Barbiturates Screen Negative (NEGATIVE) 03/13/18 09:00 Ur Phencyclidine Scrn Negative (NEGATIVE) 03/13/18 09:00 Ur Amphetamines Screen Negative (NEGATIVE) 03/13/18 09:00 U Benzodiazepines Scrn Negative (NEGATIVE) 03/13/18 09:00 U Oth Cocaine Metabols Negative (NEGATIVE) 03/13/18 09:00 U Cannabinoids Screen Positive (NEGATIVE) H 03/13/18 09:00 HIV 1&2 Ag/Ab, 4th Gen Nonreactive (Nonreactive) 03/12/18 12:59 Influenza Typ A,B (EIA) Negative for flu a/b (NEGATIVE) 03/12/18 07:59 Ur L.pneumophila Ag Negative (NEGATIVE) 03/13/18 09:00 Mycoplasma pneumon IgG 2.95 (<=0.90) H 03/13/18 07:11 - Hospital Course Hospital Course: 22F w/no sig PMH admitted for pneumonia, emesis, diarrhea. Pt reports epigastric pain- constant, severe, non radiating x 5 days. [place] [facility] [place] with CT ab performed and anti-emetic given. Admits to mid back pain, nausea, emesis (nbnb, food stuff), headache, fevers, chills/sweating, diarrhea ( liquid x 1), cough (non productive) x 2 days. Never had symptoms prior. Denies sick contacts, constipation, sore throat, dizziness, vision changes, palpitations, chest pain, SOB, weakness, numbness or tingling of extremities. IN ED- febrile 100.4, leukocytosis 11.6, U/A neg, flu neg. CXR w/RLL infiltrate. CT ab w/1.7 x 2.2 cm right ovarian cyst with a mildly thickened enhancing wall- may have recently ruptured. No fluid in the cul-de-sac. Pt admitted for pneumonia, started on vanc and zosyn. CT chest- Dense alveolar infiltrate in the right lower lobe. Pneumonia work up sent- strep pneumo, legionella (neg), CRP sent- high (109), procalcitonin WNL. Pt w/some mild hypokalemia during hospital stay- replaced. Pt seen/evaluated by ID with recs for Abx tailoring- sent vasculitis work up, ESR, CRP, KIMMIE. HIV negative. Flu neg. Pt stable, ready for d/c on PO abx as per ID with instructions to follow up with PMD. Instructed pt to follow up with gynecology for Right ovarian cyst management. Diagnoses atypical community acquired pneumonia due to mycoplasma Right ovarian cyst - Date & Time of H&P Date of H&P: 03/12/18 Time of H&P: 10:47 Discharge Exam - Head Exam Head Exam: ATRAUMATIC, NORMAL INSPECTION, NORMOCEPHALIC - Eye Exam Eye Exam: EOMI, Normal appearance - ENT Exam ENT Exam: Mucous Membranes Moist, Normal Exam - Neck Exam Neck exam: Full Rom, Normal Inspection - Respiratory Exam Respiratory Exam: Clear to PA & Lateral, NORMAL BREATHING PATTERN, UNREMARKABLE. absent: Rales, Rhonchi, Wheezes, Respiratory Distress, Stridor - Cardiovascular Exam Cardiovascular Exam: REGULAR RHYTHM, +S1, +S2 - GI/Abdominal Exam GI & Abdominal Exam: Normal Bowel Sounds, Soft, Tenderness (mild-epigastric, RLQ ), Unremarkable. absent: Distended, Firm, Guarding, Hernia, Rebound, Rigid - Extremities Exam Extremities exam: normal inspection - Neurological Exam Neurological exam: Alert, CN II-XII Intact, Oriented x3 - Psychiatric Exam Psychiatric exam: Normal Affect, Normal Mood - Skin Skin Exam: Dry, Intact, Normal Color, Warm Discharge Plan - Discharge Medications Prescriptions: Amoxicillin/Clavulanate [Augmentin 875 MG-125 MG] 1 tab PO BID #10 tab levoFLOXacin [Levaquin] 500 mg PO DAILY #5 tab - Follow Up Plan Condition: STABLE Disposition: HOME/ ROUTINE Instructions: Pneumonia, Adult (DC), Nausea and Vomiting, Adult (DC), Aspiration Pneumonia (DC), Ovarian Cyst (DC), Atypical Pneumonia (Mycoplasma and Viral) (DC), Community-Acquired Pneumonia, Adult (DC) Additional Instructions: Please make an appointment with your primary care provider to be seen in 1-2 weeks after discharge. Please make an appointment with a train brakeman for follow up regarding your ovarian cyst. Please continue all medications as prescribed. Please eat yogurt at home to help prevent yeast infections while you are on antibiotics. Please return to hospital if you have a recurrence of symptoms. Referrals: Cayla Garnica MD [Staff Provider] -
== END 2018-03-15 18:25 | disposition home or self-care (01) | DRG 195 ==
LOC: ED 06:49 → ERH 09:23 → 5RSO 10:38
PROVIDERS: ADMIT Hospitalist; ATTEND Hospitalist
DX: J15.7 Pneumonia due to Mycoplasma pneumoniae (principal); J69.0 Pneumonitis due to inhalation of food and vomit; E87.6 Hypokalemia; N83.201 Unspecified ovarian cyst, right side; F12.90 Cannabis use, unspecified, uncomplicated; R19.7 Diarrhea, unspecified